=== PATIENT | male | born 1955 | race Two or more races ===

== ENCOUNTER 2017-04-15 06:36 | Day surgery (SDC) | payer BC ==
[~2017-04-15 06:36] MED LIST: Buffered Lidocaine 0.9% SYRIN* 5 ML/SYR SYRINGE INTRADERM ONE; Famotidine IV* 10 MG/ML 2 ML (20 mg) IV ONE; Famotidine IV* 10 MG/ML 2 ML (20 mg) ONE; Metoclopramide TAB* 10 MG ONE; Metoclopramide TAB* 10 MG PO ONE
[2017-04-15] MEDS ORDERED: ceFAZolin 2 GM PREMIX (*) 50 ML IVPB ONE (06:48)
[2017-04-15] MEDS ORDERED: Midazolam* 1 MG/ML 5 ML VIAL (5 MG) ONE (07:22)
[2017-04-15] MEDS ORDERED: Ondansetron INJ* 2 MG/ML VIAL ONE (07:22)
[2017-04-15] MEDS ORDERED: Propofol* 10 MG/ML 20 ML BTL IV PUSH ONE (07:22)
[2017-04-15] MEDS ORDERED: Ketorolac INJ* 30 MG/ML 1 ML VIAL ONE (07:22)
[2017-04-15] MEDS ORDERED: Dexamethasone IV* 4 MG/ML 1 ML (4 MG) ONE (07:22)
[2017-04-15] MEDS ORDERED: KETAMINE HCL* 50 MG/ML 10 ML VIAL ONE (07:22)
[2017-04-15] MEDS ORDERED: fentaNYL* 50 MCG/ML 2 ML VIAL (100 MCG VIAL) ONE ×2 (07:22→08:07)
[2017-04-15] MEDS ORDERED: Lidocaine 2% PF * 5 ML VIAL ONE (07:22)
[2017-04-15] MEDS ORDERED: Bupivacaine 0.25% SDV* 30 ML ONE (07:33)
[2017-04-15] MEDS ORDERED: fentaNYL* 50 MCG/ML 2 ML VIAL (100 MCG VIAL) IV PRN (08:26)
[2017-04-15] MEDS ORDERED: Ondansetron INJ* 2 MG/ML VIAL IV PRN (08:26)
[2017-04-15] MEDS ORDERED: oxyCODONE/Acetamin 5/325 MG* TAB PO PRN (08:26)
[2017-04-15 10:33] VITALS: BP 128/88
--- NOTE | 2017-04-15 14:49 | OP ---
OPERATIVE REPORT: DATE OF OPERATION: 04/15/17 DATE OF : 59 SURGEON: Jordan Sarkar MD BOILER COVERER HELPER: MATTIE Amin ANESTHESIOLOGIST: Dr. Horn. ANESTHESIA: General. PRE-OP DIAGNOSIS: Left stage III basal joint arthritis. POST-OP DIAGNOSIS: Left stage III basal joint arthritis. OPERATIVE PROCEDURE: Left thumb carpometacarpal arthroplasty with split flexor carpi radialis tendo n transfer for thumb suspension. INDICATIONS: Alexx has had progressive left basal joint arthritis pain. We have tried some nonoper ative treatment. He got through the summer and wanted to proceed with surgery now. We talked about risks and benefits and the expected postoperative course. ESTIMATED BLOOD LOSS: 5 mL. COMPLICATIONS: None. FINDINGS: As expected. DESCRIPTION OF PROCEDURE: Alexx was seen in the preoperative holding area. The correct side, site, and procedure were identified. We came back to the operating room where anesthesia was induced. T nilo arm was prepped and draped in the usual fashion. A time-out was performed. I exsanguinated the arm with the Esmarch and the tourniquet was inflated to 250 mmHg. I began by loli smith a longitudinal incision over the dorsal radial aspect of the thumb metacarpal down towards the radial styloid. Dissection was carried down longitudinally to preserve the traversing radial sensor y nerve branches. A large cyst coming off of the carpometacarpal joint was identified. This was ex cised and sent as a specimen. I then mobilized the radial artery. There was one perforating branch that was ligated with 4-0 silk tie. I then made a longitudinal split through the CMC joint capsule and subperiosteal capsular flaps were raised to expose the basal joint, the scaphotrapezial joint a nd the trapeziotrapezoid joint. The soft tissues were released around the trapezium with the [place] blade. I then used a rongeur to excise the trapezium in piecemeal fashion. Once the entirety of th e trapezium was excised, the FCR tendon was visible in the base of the wound. I then raised the per iosteum off of the dorsal radial aspect of the thumb metacarpal base. Drill bits were used to seque ntially make a bone tunnel from the dorsal radial aspect of the proximal thumb metacarpal base down exiting out the volar ulnar aspect of the articular surface. The wound was then copiously irrigated out and attention was turned to the FCR tendon. I made a 1 cm transverse incision over the distal aspect of the FCR tendon just proximal to the wris t flexion crease. The tendon was delivered up into the wound and split with the 15 blade. A 25-gau ge wire was then passed through the tendon split. Several centimeters proximal to that, I made anot her transverse incision. Dissection was carried down and the tendon sheath was opened. The tendon s alisha was released along its entirety between the two incisions. I then came several centimeters pr oximal to that. I made a third transverse incision. Dissection was carried down to the sheath and the fascia. This was opened. All the adhesions were released. Once I had released the entirety of the FCR tendon along its course, I placed a Annie clamp through the middle wound down to the distal wound, retrieved the 25-gauge wire and pulled it through into the middle wound and then in similar fashion into the proximal wound to complete the tendon split and release the musculotendinous juncti on. Muscular fragments were removed off the tendon and the end of the tendon split was secured with 3-0 Ethibond suture. The tendon was then delivered down into the thumb base wound with use of two 25-gauge wires. The split was carried down to the base of the second metacarpal with the tenotomy s cissors. I then used the wires to pass the split into my tendon through the bone tunnel. It was lo oped back around the intact limb of the FCR. Appropriate tension was set and the tendon transfer wa s secured with multiple 3-0 Ethibond sutures, the first sewing off three limbs together and the subs equent sutures sewing the intact limb to the intact limb. The remainder of the splitting was rolled up in to a ball and the ball was secured with 3-0 Ethibond suture. This was then docked in between the base of the thumb and the scaphoid as an interposition. Prior to all of this, I had checked th e scaphotrapezoid joint by pulling axial traction on the second metacarpal on the second ray and monse maddie in a [place] elevator into the scaphotrapezoid joint. Everything looked good. Once I had placed the tendon as an interposition, I went ahead and took some 3-0 Ethibond and closed the periosteal an d capsular flaps to do the deep closure. I then infiltrated 0.25% Marcaine into all the operative w ounds. The skin was closed with 4-0 nylon suture. The wounds were dressed with Xeroform, 4x4, ster ile Webril and a thumb spica splint was placed with the IP joint free. Tourniquet was deflated and the hand pinked up immediately. Tourniquet time was just over 70 minutes. He was then awoken up an d taken to the recovery room in stable condition. [id number]/[facility] #: [id number]
== END 2017-04-15 10:31 | disposition home or self-care (01) ==
LOC: OREAST 06:36
PROVIDERS: ATTEND Orthopaedic Surgery Hand Surgery
DX: M18.12 Unilateral primary osteoarthritis of first carpometacarpal joint, left hand (principal); Z87.891 Personal history of nicotine dependence
CPT/HCPCS: 88304; 88311; A9270-GY; J0690; J1100; J1885; J2250; J2405; J2704; J3010

== ENCOUNTER → 2018-04-01 10:05 | Day surgery (SDC) | payer BC ==
[~2018-04-01 10:05] MED LIST changes: +Bupivacaine 0.25% EPI 200,000* 30 ML SDV ONE; +Dexamethasone IV* 4 MG/ML 1 ML (4 MG) ONE; +DiMENhydriNATE IV* 50 MG/ML VIAL IV PUSH PRN; +DiMENhydriNATE IV* 50 MG/ML VIAL ONE; +EPINEPHRINE 1 MG/ML 1 ML VIAL ONE; +HYDROmorphone INJ1* 1 MG/ML SYRINGE IV PRN; +HYDROmorphone INJ1* 1 MG/ML SYRINGE ONE; +KETAMINE HCL* 50 MG/ML 10 ML VIAL ONE; +Ketorolac INJ* 30 MG/ML 1 ML VIAL ONE; +Lidocaine 1%* 5 ML VIAL ONE; -Metoclopramide TAB* 10 MG ONE; -Metoclopramide TAB* 10 MG PO ONE; +Midazolam* 1 MG/ML 5 ML VIAL (5 MG) ONE; +Naloxone* 0.4 MG/ML 1 ML VIAL IV PRN; +Ondansetron INJ* 2 MG/ML VIAL ONE; +Propofol* 10 MG/ML 20 ML BTL IV PUSH ONE; +ROPIVACAINE 5 MG/ML 30 ML BTL (0.5%) ONE; +Succinylcholine* 20 MG/ML 10 ML VIAL ONE; +ceFAZolin 2 GM in NS PREMIX(*) 2 GM/100 ML BAG IVPB ONE; +fentaNYL* 50 MCG/ML 2 ML VIAL (100 MCG VIAL) ONE; +oxyCODONE/Acetamin 5/325 MG* TAB PO PRN
[2018-04-01 19:10] VITALS: BP 151/93
--- NOTE | 2018-04-03 22:14 | OP ---
OPERATIVE REPORT: DATE OF OPERATION: 04/01/18 DATE OF : 59 SURGEON: Efrain Ma MD DIRECTOR OF TEENAGE ACTIVITIES: MATTIE Arzola. A physician assistant professor of mathematics was required for the length of the procedure for assistance with positioning, i nstrumentation, and closure. ANESTHESIOLOGIST: Crystal Fontanez MD ANESTHESIA: General anesthesia, regional interscalene block anesthesia. PRE-OP DIAGNOSES: 1. Right shoulder rotator cuff tendon tears, supraspinatus, infraspinatus. 2. Right shoulder subacromial impingement and AC joint arthritis. 3. Right shoulder possible biceps tendinitis. POST-OP DIAGNOSES: 1. Right shoulder rotator cuff tendon tear, 2 tendons, supraspinatus and infraspinatus, retracted, l ikely chronic. 2. Right shoulder subacromial impingement and AC joint arthritis. 3. Right shoulder proximal biceps tendinitis. 4. Right shoulder calcific rotator cuff tendinitis. OPERATIVE PROCEDURES: 1. Right shoulder arthroscopic rotator cuff tendon repair, supraspinatus, infraspinatus, double-row, 5 anchors of a large, very retracted tear. 2. I applied a modifier 22 to this procedure given the retracted nature of this large tear and the r equirement that I spend much time freeing it up, inferior and superior of the tear and applying a tra ction stitch to provide increased mobilization of what must have been a very chronic rotator cuff ten don tear. 3. Right shoulder arthroscopic subacromial decompression. 4. Right shoulder arthroscopic distal clavicle resection. 5. Right shoulder arthroscopic debridement including release of biceps tendon and debridement of jacy cifications about the rotator cuff tendons, mostly undersurface of supraspinatus and infraspinatus. ANTIBIOTICS: Ancef 2 g IV. IV FLUIDS: 1500 cc crystalloid. GHRG-QU-RFDC TIME: 140 minutes. ARTHROSCOPY FLUID UTILIZED: 16 bags, each with 3 L for a total of 48 L. SPECIMEN: None. IMPLANTS: DePuy Mitek suture anchors, Healix, 5.5 mm x3, 2 of these were doubly loaded and 1 was tri ply loaded with sutures. I also used 2 knotless suture anchors each 5.5 mm in size, Mitek Healix. COMPLICATIONS: None. ESTIMATED BLOOD LOSS: Minimal. INDICATIONS FOR PROCEDURE: The patient describes right shoulder pain since early January 2018. However , he also acknowledges a long history of weakness and pain about that right shoulder, so it is diffic ult to know exactly when the rotator cuff tear was sustained. The patient's history also included me ntion of a brachial plexus injury 20 years in the past. The patient was a poor historian and states that there were many injuries about that time, so he is unsure what caused that brachial plexus injur y. He was unable to provide prior electrodiagnostic studies from 1997, 1998. The patient states isis t his scapular winging is a vestige of that injury but he is not sure if the injuries back then and t he weakness and pain about the shoulder were from brachial plexus palsy or from rotator cuff tendon i njury. MRI demonstrated retracted full thickness, full width tears of the supraspinatus and infraspinatus. The patient opted for surgery. Discussed risks and potential complications of surgery including blee ding, infection, nerve or blood vessel injury, rotator cuff tendon re-tear, shoulder pain, stiffness, osteoarthritis. DESCRIPTION OF PROCEDURE: Preoperatively, the patient signed a written consent. Operative extremity was marked in preoperative holding. We discussed treatment of the biceps tendon as needed, either re lease or tenodesis. We decided on release, especially appropriate in my mind given the patient's his tory of a possible brachial plexus palsy 20 years ago. The patient was brought to the operating room after having an interscalene regional nerve block perfo rmed. He lied supine on the operating room table and was sedated and intubated. The patient was con verted into a lateral decubitus position. Axillary roll placed. All bony prominences padded. Champion b ag hardened. The patient was placed in longitudinal traction with that right shoulder. I tried usin g 5 pounds but that was not nearly enough, so eventually I tried 10 and then required 15 pounds of tr action for appropriate longitudinal traction. The right shoulder was prepped and draped. Surgical t una-out was performed. I used a spinal needle and I entered the glenohumeral joint from posterior. I infused 30 cc of josué l saline. I made a posterior glenohumeral joint portal from posterior. I started my diagnostic arth roscopy. There was much shredding of the proximal long head biceps tendon visible. No articular car tilage defects. There was a little bit of inflammation around the subscapularis tendon superior surf merna, but no clear tear. Clear supraspinatus and infraspinatus tears. I started an anterior glenohumeral joint portal under direct visualization. I used an arthroscopic s haver to debride some synovitis anteriorly. I cut the long head biceps tendon near to its origin. N oted some calcifications about the undersurface of the supraspinatus and infraspinatus and noted that the tendons were retracted to the level of the glenoid, more than had been appreciated on preoperati ve MRI imaging. Removed fluid and instruments and entered subacromial space from posterior and anterior. Established lateral subacromial portal under direct visualization. Debrided synovitic tissue. Established poste rolateral portal. Viewed rotator cuff tendon tear and appreciated that it was the full width of both the supraspinatus and infraspinatus and retracted to the level of the glenoid. Using a rotator cuff grasper, I appreciated how minimally mobile this rotator cuff tendon was at first. I next performed a subacromial decompression using an arthroscopic donna to debride the undersurface o f the anterior hook of the acromion. I also used the donna at that time after having used the vapor, to prepare the footprint of the humeral head, for the supraspinatus and infraspinatus tendons with th e arthroscopic donna, creating the best bony surface for good healing. I next debrided with an arthroscopic shaver inferior and superior to the retracted tendons to improve mobilization. I used an arthroscopic shaver as well as, previously to that, I used a switching stic k. I then placed a traction stitch in the supraspinatus, and pulled it out a percutaneous stab incision to put some traction on the rotator cuff. I then debrided again inferior and superior to the tendon with arthroscopic shaver to remove adhesions and improve mobilization of the tendon. It was able to pull out to the rotator cuff insertion on the humeral head, under tension with the traction stitch. I next placed an anchor through a superolateral stab skin incision. This was placed in the anterior supraspinatus footprint, medial aspect. This was a double loaded suture anchor. I placed 2 horizont al mattress stitches and then tied them. This brought the rotator cuff tendon out to the appropriate length and reassured me that this was a repairable rotator cuff tendon tear. Through a separate stab incision, I next placed a triple loaded suture anchor into the medial footpri nt of the posterior aspect of supraspinatus and anterior aspect of infraspinatus. I then used a dire ct pass device from [employer] to pass 3 horizontal mattress stitches into the supraspinatus an d infraspinatus from that anchor. I did not yet tie those stitches. I next placed another double loaded suture anchor into the footprint for the posterior infraspinatus, medial aspect. I then used the direct pass suture device to pass 2 horizontal mattress stitches. I next tied my horizontal mattress stitches from the second and third suture anchors. This brought ro tator cuff nicely down to bone. I had removed the traction stitch. Given the large size of the rotator cuff tendon tear and the tension that was required on it to perfo rm this repair, I thought that a double-row fixation was definitely required and I preferred 2 latera l row anchors. I took 4 sutures from the medial row from stitches ranging from anterior to posterior most and placed them through an anterior knotless suture anchor in the lateral aspect of the rotator cuff footprint or just distal to that. This provided excellent fixation. I next placed a more posterior lateral ro w anchor also with 4 sutures from the medial row. I took photographs, liked the strength and integrity of the repair. I moved to the AC joint. Debrided synovitic tissue using vapor. I used an arthroscopic donna to debr clarice 8 mm at the end of the distal clavicle. I should state that before I did the rotator cuff repair, I noted multiple areas of calcifications on the undersurface of the rotator cuff. I debrided these areas of calcification both from within the glenohumeral joint and from the subacromial space using an arthroscopic shaver and an arthroscopic pr obe. I closed skin incisions with [id number] and 12 stitches using nylon 3-0 suture. Xeroform, 4x4's , ABD's, foam tape. Sling with abduction pillow. Cooling unit. The patient was awakened and extuba bernardino and brought to the PACU. DISPOSITION: The patient was discharged home with wound care instructions. The patient will receive Percocet as needed for pain control. The patient is to take aspirin b.i.d. x2 weeks for DVT prophyl axis. The patient will follow up with me in 10 to 14 days postoperatively. The patient will not sta rt physical therapy until after our first clinic visit. I will likely keep the patient in a sling fo r 8 weeks postoperative and I will likely advance him slowly in physical therapy due to the tension o n the repair and the large size of the tear. [id number]/[facility] #: [id number]
== END | disposition home or self-care (01) ==
LOC: OR 10:05
PROVIDERS: ATTEND Orthopaedic Surgery
DX: S46.011A Strain of muscle(s) and tendon(s) of the rotator cuff of right shoulder, initial encounter (principal); X58.XXXA Exposure to other specified factors, initial encounter; Y92.9 Unspecified place or not applicable; M75.41 Impingement syndrome of right shoulder; M75.21 Bicipital tendinitis, right shoulder; M75.31 Calcific tendinitis of right shoulder; G89.18 Other acute postprocedural pain; Z87.891 Personal history of nicotine dependence; Z85.828 Personal history of other malignant neoplasm of skin
CPT/HCPCS: J0330; J0690; J1100; J1170; J1240; J1885; J2250; J2405; J2704; J2795; J3010